=== PATIENT | female | born 1945 | race Caucasian/White ===

== ENCOUNTER 2021-03-10 04:02 | Outpatient (CLI) | payer OTHER, SELFPAY ==
[2021-03-10 08:10] LABS: Abs Immature Grans 0.03 10^3/uL (0.0-0.06); Absolute Basophil Count 0.03 10^3/uL (0.0-0.2); Absolute Eosinophil Count 0.24 10^3/uL (0.0-0.7); Absolute Lymphocyte Count 1.08 10^3/uL (1.2-3.4); Absolute Neutrophil Count 2.37 10^3/uL (1.2-6.7); Basophils % 0.7; Eosinophils % 5.6; HCT 41.7 % (36.0-46.0); HGB 13.4 g/dL (11.2-15.7); Immature Grans % 0.7; Lymphocytes % 25.4; MCH 31.8 pg (27.0-33.0); MCHC 32.1 % (32.0-36.0); Monocytes % 11.8; Neutrophils % 55.8; Nucleated RBC 0 %; Platelet Count 251 10^3/uL (130-400); RBC 4.21 10^6/uL (3.93-5.22); RDW 14.3 % (11.7-14.6); RDW-SD 51.7 fL; WBC 4.25 10^3/uL (4.4-10.8)
[2021-03-10 08:43] LABS: ALT 17 U/L (14-59); AST 14 U/L (15-37); Albumin 3.4 g/dL (3.4-5.0); Alkaline Phosphatase 62 U/L (46-116); Anion Gap 7.3 mmol/L (3-11); BUN 14 mg/dL (7-18); Bilirubin, Total 0.4 mg/dL (0.2-1.0); CO2 29.7 mmol/L (21.0-32.0); CREATININE 0.7 mg/dL (0.55-1.02); Calcium 9.2 mg/dL (8.5-10.1); Chloride 107 mmol/L (98-107); Glucose 70 mg/dL (74-106); Magnesium 2.2 mg/dL (1.8-2.4); Potassium 4.1 mmol/L (3.5-5.1); Sodium 144 mmol/L (136-145); Total Protein 6.3 g/dL (6.4-8.2)
== END 2021-03-10 04:03 | disposition home or self-care (01) ==
LOC: LBO 04:02
PROVIDERS: PCP Family Medicine; Visit Provider Internal Medicine Medical Oncology
DX: C34.12 Malignant neoplasm of upper lobe, left bronchus or lung (principal)
CPT/HCPCS: 36415; 80053; 83735; 85025

== ENCOUNTER 2021-03-16 03:24 | Outpatient (CLI) | payer OTHER, SELFPAY ==
[2021-03-16 08:07] LABS: Abs Immature Grans 0.01 10^3/uL (0.0-0.06); Absolute Basophil Count 0.03 10^3/uL (0.0-0.2); Absolute Lymphocyte Count 0.74 10^3/uL (1.2-3.4); Absolute Monocyte Count 0.28 10^3/uL (0.1-0.8); Eosinophils % 3.5; HCT 38.6 % (36.0-46.0); HGB 12.6 g/dL (11.2-15.7); Immature Grans % 0.3; Lymphocytes % 25.9; MCH 31.9 pg (27.0-33.0); MCHC 32.6 % (32.0-36.0); MCV 97.7 fL (80-95); MPV 9.6 fL (8.0-11.0); Monocytes % 9.8; Neutrophils % 59.5; Nucleated RBC 0 %; Platelet Count 193 10^3/uL (130-400); RBC 3.95 10^6/uL (3.93-5.22); RDW 14.2 % (11.7-14.6); RDW-SD 50.8 fL; WBC 2.86 10^3/uL (4.4-10.8)
[2021-03-16 08:20] LABS: ALT 17 U/L (14-59); AST 13 U/L (15-37); Albumin 3.2 g/dL (3.4-5.0); Alkaline Phosphatase 60 U/L (46-116); Anion Gap 6.6 mmol/L (3-11); BUN 16 mg/dL (7-18); Bilirubin, Total 0.6 mg/dL (0.2-1.0); CO2 26.4 mmol/L (21.0-32.0); CREATININE 0.7 mg/dL (0.55-1.02); Calcium 8.6 mg/dL (8.5-10.1); Chloride 108 mmol/L (98-107); Glucose 87 mg/dL (74-106); Magnesium 2.3 mg/dL (1.8-2.4); Potassium 4.2 mmol/L (3.5-5.1); Sodium 141 mmol/L (136-145); Total Protein 6.1 g/dL (6.4-8.2)
== END 2021-03-16 03:25 | disposition home or self-care (01) ==
LOC: LBO 03:24
PROVIDERS: PCP Family Medicine; Visit Provider Internal Medicine Medical Oncology
DX: C34.12 Malignant neoplasm of upper lobe, left bronchus or lung (principal)
CPT/HCPCS: 36415; 80053; 83735; 85025

== ENCOUNTER 2021-03-23 03:36 | Outpatient (CLI) | payer OTHER, SELFPAY ==
[2021-03-23 08:07] LABS: Abs Immature Grans 0.03 10^3/uL (0.0-0.06); Absolute Basophil Count 0.02 10^3/uL (0.0-0.2); Absolute Eosinophil Count 0.07 10^3/uL (0.0-0.7); Absolute Lymphocyte Count 0.59 10^3/uL (1.2-3.4); Absolute Monocyte Count 0.44 10^3/uL (0.1-0.8); Absolute Neutrophil Count 1.73 10^3/uL (1.2-6.7); Basophils % 0.7; Eosinophils % 2.4; HCT 39.1 % (36.0-46.0); HGB 12.9 g/dL (11.2-15.7); Lymphocytes % 20.5; MCH 32.7 pg (27.0-33.0); MCV 99.2 fL (80-95); MPV 9.4 fL (8.0-11.0); Monocytes % 15.3; Neutrophils % 60.1; Nucleated RBC 0 %; Platelet Count 209 10^3/uL (130-400); RBC 3.94 10^6/uL (3.93-5.22); RDW 14.3 % (11.7-14.6); RDW-SD 51.6 fL; WBC 2.88 10^3/uL (4.4-10.8)
[2021-03-23 08:22] LABS: ALT 17 U/L (14-59); AST 14 U/L (15-37); Albumin 3.4 g/dL (3.4-5.0); Alkaline Phosphatase 62 U/L (46-116); Anion Gap 4.4 mmol/L (3-11); BUN 17 mg/dL (7-18); Bilirubin, Total 0.3 mg/dL (0.2-1.0); CO2 28.6 mmol/L (21.0-32.0); CREATININE 0.6 mg/dL (0.55-1.02); Calcium 9.1 mg/dL (8.5-10.1); Chloride 108 mmol/L (98-107); Glucose 89 mg/dL (74-106); Magnesium 2.3 mg/dL (1.8-2.4); Potassium 5.5 mmol/L (3.5-5.1); Sodium 141 mmol/L (136-145); Total Protein 6.4 g/dL (6.4-8.2)
== END 2021-03-23 03:37 | disposition home or self-care (01) ==
LOC: LBO 03:36
PROVIDERS: PCP Family Medicine; Visit Provider Internal Medicine Medical Oncology
DX: C34.12 Malignant neoplasm of upper lobe, left bronchus or lung (principal)
CPT/HCPCS: 36415; 80053; 83735; 85025

== ENCOUNTER 2021-03-30 07:35 | Outpatient (CLI) | payer OTHER, SELFPAY ==
[2021-03-30 07:54] LABS: Abs Immature Grans 0.02 10^3/uL (0.0-0.06); Absolute Basophil Count 0.02 10^3/uL (0.0-0.2); Absolute Eosinophil Count 0.05 10^3/uL (0.0-0.7); Absolute Monocyte Count 0.42 10^3/uL (0.1-0.8); Absolute Neutrophil Count 1.69 10^3/uL (1.2-6.7); Basophils % 0.7; Eosinophils % 1.8; HCT 35.8 % (36.0-46.0); HGB 11.8 g/dL (11.2-15.7); Immature Grans % 0.7; Lymphocytes % 21.4; MCH 32.6 pg (27.0-33.0); MCV 98.9 fL (80-95); MPV 9.2 fL (8.0-11.0); Neutrophils % 60.4; Nucleated RBC 0 %; Platelet Count 157 10^3/uL (130-400); RBC 3.62 10^6/uL (3.93-5.22); RDW 14.4 % (11.7-14.6); RDW-SD 51.4 fL
[2021-03-30 08:08] LABS: ALT 18 U/L (14-59); AST 12 U/L (15-37); Albumin 3.2 g/dL (3.4-5.0); Alkaline Phosphatase 67 U/L (46-116); Anion Gap 6.4 mmol/L (3-11); BUN 14 mg/dL (7-18); Bilirubin, Total 0.4 mg/dL (0.2-1.0); CO2 28.6 mmol/L (21.0-32.0); CREATININE 0.7 mg/dL (0.55-1.02); Calcium 8.6 mg/dL (8.5-10.1); Chloride 107 mmol/L (98-107); Glucose 82 mg/dL (74-106); Potassium 3.7 mmol/L (3.5-5.1); Sodium 142 mmol/L (136-145); Total Protein 6.1 g/dL (6.4-8.2)
== END 2021-03-30 07:36 | disposition home or self-care (01) ==
PROVIDERS: PCP Family Medicine; Visit Provider Internal Medicine Medical Oncology
DX: C34.12 Malignant neoplasm of upper lobe, left bronchus or lung (principal)
CPT/HCPCS: 36415; 80053; 83735; 85025

== ENCOUNTER 2021-04-06 07:31 | Outpatient (CLI) | payer OTHER, SELFPAY ==
[2021-04-06 07:44] LABS: Abs Immature Grans 0.02 10^3/uL (0.0-0.06); Absolute Basophil Count 0.02 10^3/uL (0.0-0.2); Absolute Eosinophil Count 0.06 10^3/uL (0.0-0.7); Absolute Lymphocyte Count 0.46 10^3/uL (1.2-3.4); Absolute Neutrophil Count 1.75 10^3/uL (1.2-6.7); Basophils % 0.7; Eosinophils % 2.2; HCT 34.7 % (36.0-46.0); HGB 11.3 g/dL (11.2-15.7); Immature Grans % 0.7; MCH 32.4 pg (27.0-33.0); MCHC 32.6 % (32.0-36.0); MCV 99.4 fL (80-95); MPV 8.8 fL (8.0-11.0); Monocytes % 14.8; Neutrophils % 64.6; Nucleated RBC 0 %; Platelet Count 145 10^3/uL (130-400); RBC 3.49 10^6/uL (3.93-5.22); RDW 14.9 % (11.7-14.6); RDW-SD 53.2 fL; WBC 2.71 10^3/uL (4.4-10.8)
[2021-04-06 07:58] LABS: ALT 18 U/L (14-59); AST 12 U/L (15-37); Albumin 3.1 g/dL (3.4-5.0); Alkaline Phosphatase 62 U/L (46-116); Anion Gap 6.9 mmol/L (3-11); BUN 10 mg/dL (7-18); Bilirubin, Total 0.3 mg/dL (0.2-1.0); CO2 26.1 mmol/L (21.0-32.0); CREATININE 0.6 mg/dL (0.55-1.02); Calcium 8.4 mg/dL (8.5-10.1); Chloride 108 mmol/L (98-107); Glucose 82 mg/dL (74-106); Magnesium 2.1 mg/dL (1.8-2.4); Sodium 141 mmol/L (136-145)
== END 2021-04-06 07:32 | disposition home or self-care (01) ==
LOC: LBO 07:33
PROVIDERS: PCP Family Medicine; Visit Provider Internal Medicine Medical Oncology
DX: C34.12 Malignant neoplasm of upper lobe, left bronchus or lung (principal)
CPT/HCPCS: 36415; 80053; 83735; 85025

== ENCOUNTER 2021-05-04 13:30 | Outpatient (RCR) | payer OTHER, SELFPAY ==
[2021-04-13 08:35] LABS: Abs Immature Grans 0.02 10^3/uL (0.0-0.06); Absolute Basophil Count 0.01 10^3/uL (0.0-0.2); Absolute Eosinophil Count 0.05 10^3/uL (0.0-0.7); Absolute Lymphocyte Count 0.51 10^3/uL (1.2-3.4); Absolute Neutrophil Count 1.65 10^3/uL (1.2-6.7); Basophils % 0.4; HCT 34.8 % (36.0-46.0); HGB 11.8 g/dL (11.2-15.7); Immature Grans % 0.8; Lymphocytes % 20.1; MCH 32.8 pg (27.0-33.0); MCHC 33.9 % (32.0-36.0); MCV 96.7 fL (80-95); MPV 9.7 fL (8.0-11.0); Monocytes % 11.8; Neutrophils % 64.9; Nucleated RBC 0 %; Platelet Count 168 10^3/uL (130-400); RDW 15.1 % (11.7-14.6); RDW-SD 51.5 fL; WBC 2.54 10^3/uL (4.4-10.8)
[2021-04-13 08:53] LABS: ALT 20 U/L (14-59); AST 14 U/L (15-37); Albumin 3.4 g/dL (3.4-5.0); Alkaline Phosphatase 62 U/L (46-116); Anion Gap 6.7 mmol/L (3-11); BUN 9 mg/dL (7-18); Bilirubin, Total 0.5 mg/dL (0.2-1.0); CO2 26.3 mmol/L (21.0-32.0); CREATININE 0.7 mg/dL (0.55-1.02); Calcium 9.1 mg/dL (8.5-10.1); Chloride 107 mmol/L (98-107); Glucose 106 mg/dL (74-106); Magnesium 2.3 mg/dL (1.8-2.4); Potassium 4.6 mmol/L (3.5-5.1); Sodium 140 mmol/L (136-145); Total Protein 6.6 g/dL (6.4-8.2)
[2021-04-27 11:22] LABS: Absolute Basophil Count 0.01 10^3/uL (0.0-0.2); Absolute Eosinophil Count 0.07 10^3/uL (0.0-0.7); Absolute Monocyte Count 0.61 10^3/uL (0.1-0.8); Absolute Neutrophil Count 1.24 10^3/uL (1.2-6.7); Basophils % 0.4; Eosinophils % 2.9; HCT 36.9 % (36.0-46.0); Lymphocytes % 20.6; MCH 33.2 pg (27.0-33.0); MCHC 32.5 % (32.0-36.0); MCV 102.2 fL (80-95); MPV 9.5 fL (8.0-11.0); Monocytes % 25.1; Nucleated RBC 0 %; Platelet Count 251 10^3/uL (130-400); RBC 3.61 10^6/uL (3.93-5.22); RDW 16.5 % (11.7-14.6); RDW-SD 62.5 fL; WBC 2.43 10^3/uL (4.4-10.8)
[2021-04-27 11:34] LABS: ALT 16 U/L (14-59); AST 15 U/L (15-37); Albumin 3.3 g/dL (3.4-5.0); Alkaline Phosphatase 69 U/L (46-116); Anion Gap 8.9 mmol/L (3-11); BUN 13 mg/dL (7-18); Bilirubin, Total 0.3 mg/dL (0.2-1.0); CO2 28.1 mmol/L (21.0-32.0); CREATININE 0.7 mg/dL (0.55-1.02); Calcium 8.7 mg/dL (8.5-10.1); Chloride 108 mmol/L (98-107); Glucose 84 mg/dL (74-106); Magnesium 2.2 mg/dL (1.8-2.4); Potassium 3.8 mmol/L (3.5-5.1); Sodium 145 mmol/L (136-145); Total Protein 6.5 g/dL (6.4-8.2)
[2021-05-04] MEDS: Normal Saline Flush 10 ML SYR IVP (13:56)
[2021-05-04 14:17] LABS: Abs Immature Grans 0.06 10^3/uL (0.0-0.06); Absolute Basophil Count 0.03 10^3/uL (0.0-0.2); Absolute Eosinophil Count 0.17 10^3/uL (0.0-0.7); Absolute Lymphocyte Count 0.85 10^3/uL (1.2-3.4); Absolute Neutrophil Count 2.98 10^3/uL (1.2-6.7); Basophils % 0.6; Eosinophils % 3.5; HCT 39.5 % (36.0-46.0); HGB 12.7 g/dL (11.2-15.7); Immature Grans % 1.3; Lymphocytes % 17.7; MCH 33.1 pg (27.0-33.0); MCHC 32.2 % (32.0-36.0); MCV 102.9 fL (80-95); MPV 9.5 fL (8.0-11.0); Monocytes % 14.6; Neutrophils % 62.3; Nucleated RBC 0 %; Platelet Count 293 10^3/uL (130-400); RBC 3.84 10^6/uL (3.93-5.22); RDW 16.5 % (11.7-14.6); WBC 4.79 10^3/uL (4.4-10.8)
[2021-05-04 14:27] LABS: Magnesium 2.5 mg/dL (1.8-2.4)
[2021-05-04 14:31] LABS: ALT 24 U/L (14-59); AST 13 U/L (15-37); Albumin 3.6 g/dL (3.4-5.0); Alkaline Phosphatase 83 U/L (46-116); Anion Gap 11.3 mmol/L (3-11); BUN 13 mg/dL (7-18); Bilirubin, Total 0.3 mg/dL (0.2-1.0); CO2 25.7 mmol/L (21.0-32.0); CREATININE 0.7 mg/dL (0.55-1.02); Calcium 8.7 mg/dL (8.5-10.1); Chloride 105 mmol/L (98-107); Glucose 82 mg/dL (74-106); Potassium 3.9 mmol/L (3.5-5.1); Sodium 142 mmol/L (136-145)
== END 2021-05-05 23:59 | disposition home or self-care (01) ==
LOC: INF 13:30
PROVIDERS: PCP Family Medicine; Visit Provider Internal Medicine Medical Oncology
DX: C34.12 Malignant neoplasm of upper lobe, left bronchus or lung (principal)
CPT/HCPCS: 36415; 80053; 83735; 85025

== ENCOUNTER 2021-05-25 14:08 | Outpatient (CLI) | payer OTHER, SELFPAY ==
[2021-05-25 14:10] LABS: Abs Immature Grans 0.14 10^3/uL (0.0-0.06); Absolute Basophil Count 0.02 10^3/uL (0.0-0.2); Absolute Eosinophil Count 0.01 10^3/uL (0.0-0.7); Absolute Lymphocyte Count 0.34 10^3/uL (1.2-3.4); Absolute Monocyte Count 0.17 10^3/uL (0.1-0.8); Absolute Neutrophil Count 8.19 10^3/uL (1.2-6.7); Basophils % 0.2; Eosinophils % 0.1; HCT 41.7 % (36.0-46.0); HGB 13.1 g/dL (11.2-15.7); Immature Grans % 1.6; Lymphocytes % 3.8; MCH 32.6 pg (27.0-33.0); MCHC 31.4 % (32.0-36.0); MCV 103.7 fL (80-95); MPV 9.2 fL (8.0-11.0); Monocytes % 1.9; Neutrophils % 92.4; Nucleated RBC 0 %; Platelet Count 231 10^3/uL (130-400); RBC 4.02 10^6/uL (3.93-5.22); RDW 16.3 % (11.7-14.6); RDW-SD 62.7 fL; WBC 8.87 10^3/uL (4.4-10.8)
[2021-05-25 14:23] LABS: Magnesium 2.4 mg/dL (1.8-2.4)
[2021-05-25 14:25] LABS: ALT 22 U/L (14-59); AST 10 U/L (15-37); Albumin 3.4 g/dL (3.4-5.0); Alkaline Phosphatase 66 U/L (46-116); Anion Gap 4.8 mmol/L (3-11); BUN 21 mg/dL (7-18); Bilirubin, Total 0.4 mg/dL (0.2-1.0); CO2 31.2 mmol/L (21.0-32.0); CREATININE 0.7 mg/dL (0.55-1.02); Calcium 8.9 mg/dL (8.5-10.1); Chloride 106 mmol/L (98-107); Glucose 120 mg/dL (74-106); Sodium 142 mmol/L (136-145); Total Protein 6.4 g/dL (6.4-8.2)
== END 2021-05-25 14:09 | disposition home or self-care (01) ==
LOC: LBO 14:19
PROVIDERS: PCP Family Medicine; Visit Provider Internal Medicine Medical Oncology
DX: C34.12 Malignant neoplasm of upper lobe, left bronchus or lung (principal)
CPT/HCPCS: 36415; 80053; 83735; 85025

== ENCOUNTER 2021-06-22 02:19 | Outpatient (RCR) | payer OTHER, SELFPAY ==
[2021-06-22 10:23] LABS: Absolute Basophil Count 0.03 10^3/uL (0.0-0.2); Absolute Eosinophil Count 0.05 10^3/uL (0.0-0.7); Absolute Lymphocyte Count 0.64 10^3/uL (1.2-3.4); Absolute Monocyte Count 0.75 10^3/uL (0.1-0.8); Absolute Neutrophil Count 8.81 10^3/uL (1.2-6.7); Basophils % 0.3; Eosinophils % 0.5; HCT 44.5 % (36.0-46.0); HGB 14.1 g/dL (11.2-15.7); Immature Grans % 1.9; Lymphocytes % 6.1; MCH 32.9 pg (27.0-33.0); MCHC 31.7 % (32.0-36.0); MPV 9.5 fL (8.0-11.0); Monocytes % 7.2; Nucleated RBC 0 %; Platelet Count 218 10^3/uL (130-400); RBC 4.28 10^6/uL (3.93-5.22); RDW 15.1 % (11.7-14.6); RDW-SD 58.1 fL; WBC 10.48 10^3/uL (4.4-10.8)
[2021-06-22 10:41] LABS: ALT 20 U/L (14-59); AST 13 U/L (15-37); Albumin 3.4 g/dL (3.4-5.0); Alkaline Phosphatase 56 U/L (46-116); Anion Gap 6.9 mmol/L (3-11); BUN 15 mg/dL (7-18); Bilirubin, Total 0.4 mg/dL (0.2-1.0); CO2 30.1 mmol/L (21.0-32.0); CREATININE 0.8 mg/dL (0.55-1.02); Calcium 8.5 mg/dL (8.5-10.1); Chloride 105 mmol/L (98-107); Glucose 84 mg/dL (74-106); Magnesium 2.4 mg/dL (1.8-2.4); Potassium 3.9 mmol/L (3.5-5.1); Sodium 142 mmol/L (136-145); Total Protein 6.3 g/dL (6.4-8.2)
== END 2021-07-05 23:59 | disposition home or self-care (01) ==
LOC: INF 02:19
PROVIDERS: PCP Family Medicine; Visit Provider Internal Medicine Medical Oncology
DX: C34.12 Malignant neoplasm of upper lobe, left bronchus or lung (principal)
CPT/HCPCS: 36415; 80053; 83735; 85025

== ENCOUNTER 2021-08-31 03:36 | Outpatient (RCR) | payer MEDICARE, SELFPAY ==
[2021-08-31 10:07] LABS: Abs Immature Grans 0.08 10^3/uL (0.0-0.06); Absolute Basophil Count 0.02 10^3/uL (0.0-0.2); Absolute Eosinophil Count 0.05 10^3/uL (0.0-0.7); Absolute Lymphocyte Count 0.63 10^3/uL (1.2-3.4); Absolute Monocyte Count 0.58 10^3/uL (0.1-0.8); Absolute Neutrophil Count 3.76 10^3/uL (1.2-6.7); Basophils % 0.4; HCT 44.5 % (36.0-46.0); HGB 13.9 g/dL (11.2-15.7); Immature Grans % 1.6; Lymphocytes % 12.3; MCH 32.3 pg (27.0-33.0); MCHC 31.2 % (32.0-36.0); MCV 103.2 fL (80-95); MPV 9.5 fL (8.0-11.0); Monocytes % 11.3; Neutrophils % 73.4; Nucleated RBC 0 %; Platelet Count 202 10^3/uL (130-400); RBC 4.31 10^6/uL (3.93-5.22); RDW 14.9 % (11.7-14.6); RDW-SD 57.3 fL; WBC 5.12 10^3/uL (4.4-10.8)
[2021-08-31 10:40] LABS: ALT 21 U/L (14-59); AST 14 U/L (15-37); Albumin 3.3 g/dL (3.4-5.0); Alkaline Phosphatase 53 U/L (46-116); Anion Gap 3.8 mmol/L (3-11); BUN 16 mg/dL (7-18); Bilirubin, Total 0.4 mg/dL (0.2-1.0); CO2 32.2 mmol/L (21.0-32.0); CREATININE 0.8 mg/dL (0.55-1.02); Calcium 8.6 mg/dL (8.5-10.1); Chloride 104 mmol/L (98-107); FREE T4 0.75 ng/dL (0.76-1.46); Glucose 86 mg/dL (74-106); Potassium 3.8 mmol/L (3.5-5.1); Sodium 140 mmol/L (136-145); TSH 2.36 uIU/mL (0.36-3.74)
== END 2021-09-04 23:59 | disposition home or self-care (01) ==
LOC: INF 03:36
PROVIDERS: PCP Family Medicine; Visit Provider Internal Medicine Medical Oncology
DX: C34.12 Malignant neoplasm of upper lobe, left bronchus or lung (principal); Z79.899 Other long term (current) drug therapy
CPT/HCPCS: 36415; 80053; 84439; 84443; 85025

== ENCOUNTER 2021-11-30 02:30 | Outpatient (RCR) | payer MEDICARE, SELFPAY ==
[2021-11-30 12:24] LABS: Abs Immature Grans 0.03 10^3/uL (0.0-0.06); Absolute Basophil Count 0.03 10^3/uL (0.0-0.2); Absolute Eosinophil Count 0.08 10^3/uL (0.0-0.7); Absolute Lymphocyte Count 0.99 10^3/uL (1.2-3.4); Absolute Monocyte Count 0.56 10^3/uL (0.1-0.8); Absolute Neutrophil Count 3.47 10^3/uL (1.2-6.7); Basophils % 0.6; Eosinophils % 1.6; HCT 44.3 % (36.0-46.0); HGB 14.1 g/dL (11.2-15.7); Immature Grans % 0.6; Lymphocytes % 19.2; MCHC 31.8 % (32.0-36.0); MCV 100.7 fL (80-95); MPV 9.8 fL (8.0-11.0); Monocytes % 10.9; Neutrophils % 67.1; Nucleated RBC 0 %; Platelet Count 253 10^3/uL (130-400); RDW 14.4 % (11.7-14.6); RDW-SD 53.4 fL; WBC 5.16 10^3/uL (4.4-10.8)
[2021-11-30 12:52] LABS: ALT 20 U/L (14-59); AST 12 U/L (15-37); Albumin 3.6 g/dL (3.4-5.0); Alkaline Phosphatase 78 U/L (46-116); Anion Gap 4.8 mmol/L (3-11); BUN 12 mg/dL (7-18); Bilirubin, Total 0.5 mg/dL (0.2-1.0); CO2 29.2 mmol/L (21.0-32.0); CREATININE 0.8 mg/dL (0.55-1.02); Calcium 8.8 mg/dL (8.5-10.1); Chloride 106 mmol/L (98-107); FREE T4 0.75 ng/dL (0.76-1.46); Glucose 85 mg/dL (74-106); Potassium 4.3 mmol/L (3.5-5.1); Sodium 140 mmol/L (136-145); TSH 2.36 uIU/mL (0.36-3.74); Total Protein 6.6 g/dL (6.4-8.2)
== END 2021-12-03 23:59 | disposition home or self-care (01) ==
LOC: INF 02:30
PROVIDERS: PCP Family Medicine; Visit Provider Internal Medicine Medical Oncology
DX: C34.12 Malignant neoplasm of upper lobe, left bronchus or lung (principal); Z79.899 Other long term (current) drug therapy
CPT/HCPCS: 36415; 80053; 84439; 84443; 85025

== ENCOUNTER 2023-10-31 03:51 | Outpatient (RCR) | payer MEDICARE, SELFPAY ==
[2023-10-10 12:16] LABS: Abs Immature Grans 0.02 10^3/uL (0.0-0.06); Absolute Basophil Count 0.05 10^3/uL (0.0-0.2); Absolute Eosinophil Count 0.53 10^3/uL (0.0-0.7); Absolute Lymphocyte Count 0.88 10^3/uL (1.2-3.4); Absolute Monocyte Count 0.57 10^3/uL (0.1-0.8); Absolute Neutrophil Count 3.11 10^3/uL (1.2-6.7); Eosinophils % 10.3; HCT 39.6 % (36.0-46.0); HGB 12.6 g/dL (11.2-15.7); Immature Grans % 0.4; Lymphocytes % 17.1; MCH 30.8 pg (27.0-33.0); MCHC 31.8 % (32.0-36.0); MCV 97 fL (80-95); MPV 9.6 fL (8.0-11.0); Neutrophils % 60.2; Platelet Count 235 10^3/uL (130-400); RBC 4.09 10^6/uL (3.93-5.22); RDW 14.3 % (11.7-14.6); RDW-SD 51.3 fL; WBC 5.16 10^3/uL (4.4-10.8)
[2023-10-10 12:45] LABS: ALT 20 U/L (14-59); AST 13 U/L (15-37); Albumin 3.3 g/dL (3.4-5.0); Alkaline Phosphatase 74 U/L (46-116); Anion Gap 7.9 mmol/L (3-11); BUN 14 mg/dL (7-18); Bilirubin, Total 0.5 mg/dL (0.2-1.0); CO2 28.1 mmol/L (21.0-32.0); CREATININE 0.8 mg/dL (0.55-1.02); Calcium 8.9 mg/dL (8.5-10.1); Chloride 106 mmol/L (98-107); Estimated GFR 75.84 (mL/min/1.73m2); FREE T4 0.93 ng/dL (0.76-1.46); Glucose 82 mg/dL (74-106); Magnesium 2.3 mg/dL (1.8-2.4); Potassium 4.4 mmol/L (3.5-5.1); Sodium 142 mmol/L (136-145); TSH 1.45 uIU/mL (0.36-3.74); Total Protein 6.3 g/dL (6.4-8.2)
[2023-10-24] MEDS: Normal Saline Flush 10 ML SYR IVP (13:38)
[2023-10-24 13:53] LABS: Absolute Basophil Count 0.01 10^3/uL (0.0-0.2); Absolute Eosinophil Count 0.15 10^3/uL (0.0-0.7); Absolute Lymphocyte Count 0.79 10^3/uL (1.2-3.4); Absolute Monocyte Count 0.53 10^3/uL (0.1-0.8); Absolute Neutrophil Count 1.18 10^3/uL (1.2-6.7); Basophils % 0.4; Eosinophils % 5.6; HCT 34.9 % (36.0-46.0); HGB 11.3 g/dL (11.2-15.7); Lymphocytes % 29.7; MCH 30.5 pg (27.0-33.0); MCHC 32.4 % (32.0-36.0); MCV 94 fL (80-95); MPV 9.9 fL (8.0-11.0); Monocytes % 19.9; Neutrophils % 44.4; Platelet Count 161 10^3/uL (130-400); RDW 14.2 % (11.7-14.6); RDW-SD 47.8 fL; WBC 2.66 10^3/uL (4.4-10.8)
[2023-10-24 14:22] LABS: ALT 34 U/L (14-59); AST 21 U/L (15-37); Albumin 3.2 g/dL (3.4-5.0); Alkaline Phosphatase 69 U/L (46-116); BUN 11 mg/dL (7-18); Bilirubin, Total 0.3 mg/dL (0.2-1.0); CREATININE 0.7 mg/dL (0.55-1.02); Calcium 8.5 mg/dL (8.5-10.1); Chloride 109 mmol/L (98-107); Estimated GFR 89.02 (mL/min/1.73m2); FREE T4 0.86 ng/dL (0.76-1.46); Glucose 99 mg/dL (74-106); Magnesium 2.2 mg/dL (1.8-2.4); Potassium 3.7 mmol/L (3.5-5.1); Sodium 144 mmol/L (136-145); TSH 1.56 uIU/mL (0.36-3.74); Total Protein 6.2 g/dL (6.4-8.2)
[2023-10-31 12:55] LABS: Abs Immature Grans 0.01 10^3/uL (0.0-0.06); Absolute Basophil Count 0.02 10^3/uL (0.0-0.2); Absolute Eosinophil Count 0.14 10^3/uL (0.0-0.7); Absolute Lymphocyte Count 0.82 10^3/uL (1.2-3.4); Absolute Monocyte Count 0.65 10^3/uL (0.1-0.8); Absolute Neutrophil Count 1.56 10^3/uL (1.2-6.7); Basophils % 0.6; Eosinophils % 4.4; HCT 34.6 % (36.0-46.0); HGB 11.3 g/dL (11.2-15.7); Immature Grans % 0.3; Lymphocytes % 25.6; MCHC 32.7 % (32.0-36.0); MCV 95 fL (80-95); MPV 9.7 fL (8.0-11.0); Monocytes % 20.3; Neutrophils % 48.8; Platelet Count 332 10^3/uL (130-400); RBC 3.64 10^6/uL (3.93-5.22); RDW 14.8 % (11.7-14.6); RDW-SD 50.7 fL
[2023-10-31 13:15] LABS: ALT 32 U/L (14-59); AST 20 U/L (15-37); Albumin 2.9 g/dL (3.4-5.0); Alkaline Phosphatase 64 U/L (46-116); Anion Gap 8.4 mmol/L (3-11); BUN 10 mg/dL (7-18); Bilirubin, Total 0.4 mg/dL (0.2-1.0); CO2 27.6 mmol/L (21.0-32.0); CREATININE 0.7 mg/dL (0.55-1.02); Calcium 8.3 mg/dL (8.5-10.1); Chloride 109 mmol/L (98-107); Estimated GFR 89.02 (mL/min/1.73m2); FREE T4 0.89 ng/dL (0.76-1.46); Glucose 95 mg/dL (74-106); Magnesium 2.1 mg/dL (1.8-2.4); Potassium 3.6 mmol/L (3.5-5.1); Sodium 145 mmol/L (136-145); TSH 1.67 uIU/mL (0.36-3.74); Total Protein 5.9 g/dL (6.4-8.2)
[2023-10-31] MEDS: Normal Saline Flush 10 ML SYR IVP (14:26)
== END 2023-11-03 23:59 | disposition home or self-care (01) ==
LOC: INF 03:51
PROVIDERS: PCP Family Medicine; Visit Provider Internal Medicine Medical Oncology
DX: C34.12 Malignant neoplasm of upper lobe, left bronchus or lung (principal); Z79.899 Other long term (current) drug therapy; Z45.2 Encounter for adjustment and management of vascular access device
CPT/HCPCS: 36415; 36591; 80053; 83735; 84439; 84443; 85025

== ENCOUNTER 2023-11-21 05:13 | Outpatient (RCR) | payer MEDICARE, SELFPAY ==
[2023-11-21] MEDS: Normal Saline Flush 10 ML SYR IVP (09:39)
[2023-11-21 09:55] LABS: Abs Immature Grans 0.01 10^3/uL (0.0-0.06); Absolute Basophil Count 0.02 10^3/uL (0.0-0.2); Absolute Eosinophil Count 0.08 10^3/uL (0.0-0.7); Absolute Lymphocyte Count 0.83 10^3/uL (1.2-3.4); Absolute Monocyte Count 0.62 10^3/uL (0.1-0.8); Absolute Neutrophil Count 0.98 10^3/uL (1.2-6.7); Basophils % 0.8; Eosinophils % 3.1; HCT 33.9 % (36.0-46.0); HGB 10.9 g/dL (11.2-15.7); Immature Grans % 0.4; Lymphocytes % 32.7; MCH 31.3 pg (27.0-33.0); MCHC 32.2 % (32.0-36.0); MCV 97 fL (80-95); MPV 9.3 fL (8.0-11.0); Monocytes % 24.4; Neutrophils % 38.6; Platelet Count 370 10^3/uL (130-400); RBC 3.48 10^6/uL (3.93-5.22); RDW 16.9 % (11.7-14.6); RDW-SD 58.7 fL; WBC 2.54 10^3/uL (4.4-10.8)
[2023-11-21 10:15] LABS: Anisocytosis 1+; Diff Comment Diff Reviewed
[2023-11-21 10:19] LABS: ALT 41 U/L (14-59); AST 25 U/L (15-37); Albumin 3.1 g/dL (3.4-5.0); Alkaline Phosphatase 67 U/L (46-116); Anion Gap 8.9 mmol/L (3-11); BUN 8 mg/dL (7-18); Bilirubin, Total 0.4 mg/dL (0.2-1.0); CO2 28.1 mmol/L (21.0-32.0); CREATININE 0.8 mg/dL (0.55-1.02); Calcium 8.2 mg/dL (8.5-10.1); Chloride 109 mmol/L (98-107); Estimated GFR 75.84 (mL/min/1.73m2); FREE T4 0.92 ng/dL (0.76-1.46); Glucose 98 mg/dL (74-106); Magnesium 2.2 mg/dL (1.8-2.4); Potassium 3.2 mmol/L (3.5-5.1); Sodium 146 mmol/L (136-145)
== END 2023-12-04 23:59 | disposition home or self-care (01) ==
LOC: INF 05:13
PROVIDERS: PCP Family Medicine; Visit Provider Internal Medicine Medical Oncology
DX: C34.12 Malignant neoplasm of upper lobe, left bronchus or lung (principal); Z79.899 Other long term (current) drug therapy
CPT/HCPCS: 36591; 80053; 83735; 84439; 84443; 85025

== ENCOUNTER 2023-12-19 05:47 | Outpatient (RCR) | payer MEDICARE, SELFPAY ==
[2023-12-19] MEDS: Normal Saline Flush 10 ML SYR IVP (10:15)
[2023-12-19 10:31] LABS: Abs Immature Grans 0.02 10^3/uL (0.0-0.06); Absolute Basophil Count 0.03 10^3/uL (0.0-0.2); Absolute Monocyte Count 0.55 10^3/uL (0.1-0.8); Basophils % 0.5; Eosinophils % 3.1; HCT 37.3 % (36.0-46.0); HGB 11.8 g/dL (11.2-15.7); Immature Grans % 0.3; Lymphocytes % 14.1; MCH 31.3 pg (27.0-33.0); MCHC 31.6 % (32.0-36.0); MCV 99 fL (80-95); MPV 9.4 fL (8.0-11.0); Monocytes % 8.6; Neutrophils % 73.4; Platelet Count 365 10^3/uL (130-400); RBC 3.77 10^6/uL (3.93-5.22); RDW 15.9 % (11.7-14.6); RDW-SD 58.1 fL
[2023-12-19 11:13] LABS: ALT 24 U/L (14-59); AST 18 U/L (15-37); Albumin 2.9 g/dL (3.4-5.0); Alkaline Phosphatase 74 U/L (46-116); Anion Gap 10.5 mmol/L (3-11); BUN 14 mg/dL (7-18); Bilirubin, Total 0.4 mg/dL (0.2-1.0); CO2 26.5 mmol/L (21.0-32.0); CREATININE 0.7 mg/dL (0.55-1.02); Calcium 8.6 mg/dL (8.5-10.1); Chloride 107 mmol/L (98-107); Estimated GFR 89.02 (mL/min/1.73m2); FREE T4 0.91 ng/dL (0.76-1.46); Glucose 120 mg/dL (74-106); Magnesium 2.1 mg/dL (1.8-2.4); Sodium 144 mmol/L (136-145); TSH 2.14 uIU/Ml (0.36-3.74); Total Protein 6.3 g/dL (6.4-8.2)
== END 2024-01-03 23:59 | disposition home or self-care (01) ==
LOC: INF 05:47
PROVIDERS: PCP Family Medicine; Visit Provider Internal Medicine Medical Oncology
DX: C34.12 Malignant neoplasm of upper lobe, left bronchus or lung (principal); Z79.899 Other long term (current) drug therapy; Z45.2 Encounter for adjustment and management of vascular access device
CPT/HCPCS: 36591; 80053; 83735; 84439; 84443; 85025

== ENCOUNTER 2024-01-09 04:57 | Outpatient (RCR) | payer MEDICARE, SELFPAY ==
[2024-01-09] MEDS: Normal Saline Flush 10 ML SYR IVP (08:40)
[2024-01-09 09:22] LABS: Abs Immature Grans 0.04 10^3/uL (0.0-0.06); Absolute Basophil Count 0.03 10^3/uL (0.0-0.2); Absolute Eosinophil Count 0.06 10^3/uL (0.0-0.7); Absolute Lymphocyte Count 0.99 10^3/uL (1.2-3.4); Absolute Monocyte Count 0.86 10^3/uL (0.1-0.8); Absolute Neutrophil Count 4.32 10^3/uL (1.2-6.7); Basophils % 0.5 %; HCT 33.8 % (36.0-46.0); HGB 10.5 g/dL (11.2-15.7); Immature Grans % 0.6 %; Lymphocytes % 15.7 %; MCH 30.7 pg (27.0-33.0); MCHC 31.1 % (32.0-36.0); MCV 99 fL (80-95); MPV 9.5 fL (8.0-11.0); Monocytes % 13.7 %; Neutrophils % 68.5 %; Platelet Count 374 10^3/uL (130-400); RBC 3.42 10^6/uL (3.93-5.22); RDW 16.2 % (11.7-14.6); RDW-SD 58.5 fL
[2024-01-09 09:51] LABS: ALT 14 U/L (14-59); AST 13 U/L (15-37); Albumin 2.9 g/dL (3.4-5.0); Alkaline Phosphatase 76 U/L (46-116); Anion Gap 7.9 mmol/L (3-11); BUN 14 mg/dL (7-18); Bilirubin, Total 0.4 mg/dL (0.2-1.0); CO2 28.1 mmol/L (21.0-32.0); CREATININE 0.7 mg/dL (0.55-1.02); Calcium 8.7 mg/dL (8.5-10.1); Chloride 107 mmol/L (98-107); Estimated GFR 89.02 (mL/min/1.73m2); FREE T4 0.94 ng/dL (0.76-1.46); Glucose 87 mg/dL (74-106); Sodium 143 mmol/L (136-145); TSH 2.39 uIU/Ml (0.36-3.74); Total Protein 6.2 g/dL (6.4-8.2)
== END 2024-02-03 23:59 | disposition home or self-care (01) ==
LOC: INF 04:57
PROVIDERS: PCP Family Medicine; Visit Provider Internal Medicine Medical Oncology
DX: C34.12 Malignant neoplasm of upper lobe, left bronchus or lung (principal); Z79.899 Other long term (current) drug therapy; Z45.2 Encounter for adjustment and management of vascular access device
CPT/HCPCS: 36591; 80053; 83735; 84439; 84443; 85025

== ENCOUNTER 2024-02-27 02:46 | Outpatient (RCR) | payer MEDICARE, SELFPAY ==
[2024-02-06] MEDS: Normal Saline Flush 10 ML SYR IVP (10:12)
[2024-02-06 10:25] LABS: Abs Immature Grans 0.01 10^3/uL (0.0-0.06); Absolute Basophil Count 0.03 10^3/uL (0.0-0.2); Absolute Lymphocyte Count 0.81 10^3/uL (1.2-3.4); Absolute Monocyte Count 0.81 10^3/uL (0.1-0.8); Absolute Neutrophil Count 3.68 10^3/uL (1.2-6.7); Basophils % 0.5 %; Eosinophils % 3.6 %; HCT 31.6 % (36.0-46.0); HGB 9.9 g/dL (11.2-15.7); Immature Grans % 0.2 %; Lymphocytes % 14.6 %; MCH 30.6 pg (27.0-33.0); MCHC 31.3 % (32.0-36.0); MCV 98 fL (80-95); MPV 9.5 fL (8.0-11.0); Monocytes % 14.6 %; Neutrophils % 66.5 %; Platelet Count 230 10^3/uL (130-400); RBC 3.24 10^6/uL (3.93-5.22); RDW 16.1 % (11.7-14.6); RDW-SD 57.2 fL; WBC 5.54 10^3/uL (4.4-10.8)
[2024-02-06 10:49] LABS: ALT 18 U/L (14-59); AST 15 U/L (15-37); Albumin 3.2 g/dL (3.4-5.0); Alkaline Phosphatase 70 U/L (46-116); Anion Gap 8.6 mmol/L (3-11); BUN 11 mg/dL (7-18); Bilirubin, Total 0.4 mg/dL (0.2-1.0); CO2 30.4 mmol/L (21.0-32.0); CREATININE 0.9 mg/dL (0.55-1.02); Calcium 8.6 mg/dL (8.5-10.1); Chloride 106 mmol/L (98-107); Estimated GFR 65.84 (mL/min/1.73m2); Glucose 109 mg/dL (74-106); Potassium 3.1 mmol/L (3.5-5.1); Sodium 145 mmol/L (136-145); Total Protein 6.4 g/dL (6.4-8.2)
== END 2024-03-04 23:59 | disposition home or self-care (01) ==
LOC: INF 02:46
PROVIDERS: PCP Family Medicine; Visit Provider Internal Medicine Medical Oncology
DX: Z79.899 Other long term (current) drug therapy (principal); C34.12 Malignant neoplasm of upper lobe, left bronchus or lung; Z45.2 Encounter for adjustment and management of vascular access device
CPT/HCPCS: 36591; 80053; 83735; 84439; 84443; 85025

== ENCOUNTER 2024-03-28 01:51 | Outpatient (RCR) | payer MEDICARE, SELFPAY ==
[2024-03-05] MEDS: Normal Saline Flush 10 ML SYR IVP (10:23)
[2024-03-05 10:55] LABS: Abs Immature Grans 0.04 10^3/uL (0.0-0.06); Absolute Basophil Count 0.03 10^3/uL (0.0-0.2); Absolute Eosinophil Count 0.26 10^3/uL (0.0-0.7); Absolute Lymphocyte Count 0.54 10^3/uL (1.2-3.4); Absolute Monocyte Count 0.67 10^3/uL (0.1-0.8); Absolute Neutrophil Count 4.59 10^3/uL (1.2-6.7); Basophils % 0.5 %; Eosinophils % 4.2 %; HCT 27.8 % (36.0-46.0); HGB 8.5 g/dL (11.2-15.7); Immature Grans % 0.7 %; Lymphocytes % 8.8 %; MCH 30.5 pg (27.0-33.0); MCHC 30.6 % (32.0-36.0); MCV 100 fL (80-95); MPV 9.7 fL (8.0-11.0); Monocytes % 10.9 %; Neutrophils % 74.9 %; Platelet Count 226 10^3/uL (130-400); RBC 2.79 10^6/uL (3.93-5.22); RDW 16.8 % (11.7-14.6); RDW-SD 62.2 fL; WBC 6.13 10^3/uL (4.4-10.8)
[2024-03-05 11:28] LABS: ALT 25 U/L (14-59); AST 17 U/L (15-37); Albumin 2.6 g/dL (3.4-5.0); Alkaline Phosphatase 49 U/L (46-116); Anion Gap 7.4 mmol/L (3-11); BUN 14 mg/dL (7-18); Bilirubin, Total 0.56 mg/dL (0.2-1.0); CO2 30.6 mmol/L (21.0-32.0); Calcium 8.3 mg/dL (8.5-10.1); Chloride 106 mmol/L (98-107); Estimated GFR 58.02 (mL/min/1.73m2); Glucose 100 mg/dL (74-106); Magnesium 1.8 mg/dL (1.8-2.4); Potassium 3.4 mmol/L (3.5-5.1); Sodium 144 mmol/L (136-145); TSH 4.95 uIU/Ml (0.36-3.74); Total Protein 5.8 g/dL (6.4-8.2)
[2024-03-28] MEDS: Normal Saline Flush 10 ML SYR IVP (10:00)
[2024-03-28 10:41] LABS: Abs Immature Grans 0.04 10^3/uL (0.0-0.06); Absolute Basophil Count 0.05 10^3/uL (0.0-0.2); Absolute Lymphocyte Count 0.72 10^3/uL (1.2-3.4); Absolute Monocyte Count 1.25 10^3/uL (0.1-0.8); Absolute Neutrophil Count 3.99 10^3/uL (1.2-6.7); Basophils % 0.8 %; Eosinophils % 4.7 %; HCT 33.3 % (36.0-46.0); HGB 10.5 g/dL (11.2-15.7); Immature Grans % 0.6 %; Lymphocytes % 11.3 %; MCH 30.9 pg (27.0-33.0); MCHC 31.5 % (32.0-36.0); MCV 98 fL (80-95); MPV 9.5 fL (8.0-11.0); Monocytes % 19.7 %; Neutrophils % 62.9 %; Platelet Count 416 10^3/uL (130-400); RDW 17.8 % (11.7-14.6); RDW-SD 61.1 fL; WBC 6.35 10^3/uL (4.4-10.8)
[2024-03-28 10:44] LABS: Reticulocyte 1.6 % (0.5-2.4)
[2024-03-28 11:07] LABS: ALT 30 U/L (14-59); AST 22 U/L (15-37); Albumin 2.8 g/dL (3.4-5.0); Alkaline Phosphatase 70 U/L (46-116); Anion Gap 6.9 mmol/L (3-11); BUN 15 mg/dL (7-18); Bilirubin, Total 0.36 mg/dL (0.2-1.0); CO2 28.1 mmol/L (21.0-32.0); CREATININE 1.2 mg/dL (0.55-1.02); Calcium 8.4 mg/dL (8.5-10.1); Chloride 107 mmol/L (98-107); Estimated GFR 46.62 (mL/min/1.73m2); FREE T4 0.97 ng/dL (0.76-1.46); Glucose 94 mg/dL (74-106); Potassium 4.3 mmol/L (3.5-5.1); Sodium 142 mmol/L (136-145); TSH 3.75 uIU/Ml (0.36-3.74); Total Protein 6.3 g/dL (6.4-8.2)
[2024-03-28 11:09] LABS: Iron 11 ug/dL (50-170); Total Iron Binding Capacity 82 ug/dL (250-450); Transferrin Sat 13 % (15-50)
[2024-03-28 11:23] LABS: Ferritin 480 ng/mL (8-252); Folate > 20.0 ng/mL (8.6-20.0); Vitamin B12 1340 pg/mL (193-986)
== END 2024-04-04 23:59 | disposition home or self-care (01) ==
LOC: INF 01:51
PROVIDERS: Nurse Practitioner Family; PCP Family Medicine; Visit Provider Internal Medicine Medical Oncology
DX: C34.12 Malignant neoplasm of upper lobe, left bronchus or lung (principal); Z79.899 Other long term (current) drug therapy; D63.0 Anemia in neoplastic disease; Z45.2 Encounter for adjustment and management of vascular access device
CPT/HCPCS: 36591; 80053; 82607; 82728; 82746; 83540; 83550; 83735; 84439; 84443; 85025; 85045

== ENCOUNTER 2024-04-16 03:06 | Outpatient (RCR) | payer MEDICARE, SELFPAY ==
[2024-04-16] MEDS: Normal Saline Flush 10 ML SYR IVP (10:59)
[2024-04-16 11:07] LABS: Abs Immature Grans 0.04 10^3/uL (0.0-0.06); Absolute Basophil Count 0.03 10^3/uL (0.0-0.2); Absolute Eosinophil Count 0.21 10^3/uL (0.0-0.7); Absolute Lymphocyte Count 1.08 10^3/uL (1.2-3.4); Absolute Monocyte Count 1.25 10^3/uL (0.1-0.8); Absolute Neutrophil Count 5.18 10^3/uL (1.2-6.7); Basophils % 0.4 %; Eosinophils % 2.7 %; HGB 9.1 g/dL (11.2-15.7); Immature Grans % 0.5 %; Lymphocytes % 13.9 %; MCH 31.7 pg (27.0-33.0); MCHC 32.5 % (32.0-36.0); MCV 98 fL (80-95); MPV 9.9 fL (8.0-11.0); Neutrophils % 66.5 %; Platelet Count 374 10^3/uL (130-400); RBC 2.87 10^6/uL (3.93-5.22); RDW 19.4 % (11.7-14.6); RDW-SD 62.7 fL; WBC 7.79 10^3/uL (4.4-10.8)
[2024-04-16 11:37] LABS: ALT 43 U/L (14-59); AST 37 U/L (15-37); Albumin 3.1 g/dL (3.4-5.0); Alkaline Phosphatase 69 U/L (46-116); Anion Gap 7.5 mmol/L (3-11); BUN 16 mg/dL (7-18); Bilirubin, Total 0.28 mg/dL (0.2-1.0); CO2 29.5 mmol/L (21.0-32.0); CREATININE 1.2 mg/dL (0.55-1.02); Calcium 9.2 mg/dL (8.5-10.1); Chloride 104 mmol/L (98-107); Estimated GFR 46.62 (mL/min/1.73m2); FREE T4 0.98 ng/dL (0.76-1.46); Glucose 91 mg/dL (74-106); Magnesium 2.2 mg/dL (1.8-2.4); Potassium 4.9 mmol/L (3.5-5.1); Sodium 141 mmol/L (136-145); TSH 5.27 uIU/Ml (0.36-3.74); Total Protein 6.8 g/dL (6.4-8.2)
== END 2024-05-05 23:59 | disposition home or self-care (01) ==
LOC: INF 03:06
PROVIDERS: PCP Family Medicine; Visit Provider Internal Medicine Medical Oncology
DX: C34.12 Malignant neoplasm of upper lobe, left bronchus or lung (principal); Z79.899 Other long term (current) drug therapy; Z45.2 Encounter for adjustment and management of vascular access device
CPT/HCPCS: 36591; 80053; 83735; 84439; 84443; 85025

== ENCOUNTER 2024-05-30 02:10 | Outpatient (RCR) | payer MEDICARE, SELFPAY ==
[2024-05-09] MEDS: Normal Saline Flush 10 ML SYR IVP (09:20)
[2024-05-09 09:36] LABS: Abs Immature Grans 0.03 10^3/uL (0.0-0.06); Absolute Basophil Count 0.03 10^3/uL (0.0-0.2); Absolute Eosinophil Count 0.23 10^3/uL (0.0-0.7); Absolute Lymphocyte Count 0.89 10^3/uL (1.2-3.4); Absolute Monocyte Count 1.23 10^3/uL (0.1-0.8); Absolute Neutrophil Count 3.87 10^3/uL (1.2-6.7); Basophils % 0.5 %; Eosinophils % 3.7 %; HCT 30.8 % (36.0-46.0); HGB 9.7 g/dL (11.2-15.7); Immature Grans % 0.5 %; Lymphocytes % 14.2 %; MCH 32.7 pg (27.0-33.0); MCHC 31.5 % (32.0-36.0); MCV 104 fL (80-95); MPV 9.8 fL (8.0-11.0); Monocytes % 19.6 %; Neutrophils % 61.5 %; Platelet Count 418 10^3/uL (130-400); RBC 2.97 10^6/uL (3.93-5.22); RDW 20.8 % (11.7-14.6); RDW-SD 76.5 fL; WBC 6.28 10^3/uL (4.4-10.8)
[2024-05-09 10:02] LABS: Diff Comment RBC Morph Reviewed
[2024-05-09 10:03] LABS: ALT 29 U/L (14-59); AST 24 U/L (15-37); Albumin 3.2 g/dL (3.4-5.0); Alkaline Phosphatase 74 U/L (46-116); Anion Gap 8.2 mmol/L (3-11); Anisocytosis 2+; BUN 19 mg/dL (7-18); Bilirubin, Total 0.36 mg/dL (0.2-1.0); CO2 26.8 mmol/L (21.0-32.0); CREATININE 1.4 mg/dL (0.55-1.02); Calcium 9.6 mg/dL (8.5-10.1); Chloride 105 mmol/L (98-107); Estimated GFR 38.51 (mL/min/1.73m2); FREE T4 0.92 ng/dL (0.76-1.46); Glucose 97 mg/dL (74-106); Magnesium 2.4 mg/dL (1.8-2.4); Polychromasia Present; Potassium 4.8 mmol/L (3.5-5.1); Sodium 140 mmol/L (136-145); TSH 10.49 uIU/Ml (0.36-3.74)
[2024-05-30 13:40] LABS: Abs Immature Grans 0.04 10^3/uL (0.0-0.06); Absolute Basophil Count 0.06 10^3/uL (0.0-0.2); Absolute Eosinophil Count 0.23 10^3/uL (0.0-0.7); Absolute Lymphocyte Count 0.93 10^3/uL (1.2-3.4); Absolute Monocyte Count 1.01 10^3/uL (0.1-0.8); Absolute Neutrophil Count 5.34 10^3/uL (1.2-6.7); Basophils % 0.8 %; HCT 30.3 % (36.0-46.0); HGB 9.6 g/dL (11.2-15.7); Immature Grans % 0.5 %; Lymphocytes % 12.2 %; MCH 33.6 pg (27.0-33.0); MCHC 31.7 % (32.0-36.0); MCV 106 fL (80-95); MPV 10.1 fL (8.0-11.0); Monocytes % 13.3 %; Neutrophils % 70.2 %; Platelet Count 260 10^3/uL (130-400); RBC 2.86 10^6/uL (3.93-5.22); RDW 18.7 % (11.7-14.6); RDW-SD 73.5 fL; WBC 7.61 10^3/uL (4.4-10.8)
[2024-05-30] MEDS: Normal Saline Flush 10 ML SYR IVP (13:41)
[2024-05-30 14:07] LABS: ALT 25 U/L (14-59); AST 39 U/L (15-37); Albumin 3.3 g/dL (3.4-5.0); Alkaline Phosphatase 70 U/L (46-116); Anion Gap 8.5 mmol/L (3-11); BUN 20 mg/dL (7-18); Bilirubin, Total 0.47 mg/dL (0.2-1.0); CO2 25.5 mmol/L (21.0-32.0); CREATININE 1.3 mg/dL (0.55-1.02); Chloride 103 mmol/L (98-107); Estimated GFR 42.09 (mL/min/1.73m2); FREE T4 0.92 ng/dL (0.76-1.46); Glucose 102 mg/dL (74-106); Potassium 4.1 mmol/L (3.5-5.1); Sodium 137 mmol/L (136-145); TSH 2.38 uIU/Ml (0.36-3.74); Total Protein 6.8 g/dL (6.4-8.2)
[2024-05-30 14:12] LABS: Macrocytosis 1+
== END 2024-06-04 23:59 | disposition home or self-care (01) ==
LOC: INF 02:10
PROVIDERS: PCP Family Medicine; Visit Provider Internal Medicine Medical Oncology
DX: C34.12 Malignant neoplasm of upper lobe, left bronchus or lung (principal); Z79.899 Other long term (current) drug therapy
CPT/HCPCS: 36591; 80053; 83735; 84439; 84443; 85025

== ENCOUNTER 2024-06-18 02:19 | Outpatient (RCR) | payer MEDICARE, SELFPAY ==
[2024-06-18] MEDS: Normal Saline Flush 10 ML SYR IVP (09:17)
[2024-06-18 10:03] LABS: Abs Immature Grans 0.04 10^3/uL (0.0-0.06); Absolute Basophil Count 0.01 10^3/uL (0.0-0.2); Absolute Eosinophil Count 0.17 10^3/uL (0.0-0.7); Absolute Lymphocyte Count 0.87 10^3/uL (1.2-3.4); Absolute Monocyte Count 1.26 10^3/uL (0.1-0.8); Absolute Neutrophil Count 4.39 10^3/uL (1.2-6.7); Basophils % 0.1 %; Eosinophils % 2.5 %; HCT 25.8 % (36.0-46.0); HGB 8.4 g/dL (11.2-15.7); Immature Grans % 0.6 %; Lymphocytes % 12.9 %; MCHC 32.6 % (32.0-36.0); MCV 108 fL (80-95); MPV 10.3 fL (8.0-11.0); Monocytes % 18.7 %; Neutrophils % 65.2 %; Platelet Count 367 10^3/uL (130-400); RDW 17.8 % (11.7-14.6); RDW-SD 66.7 fL; WBC 6.74 10^3/uL (4.4-10.8)
[2024-06-18 10:21] LABS: Diff Comment Diff Reviewed
[2024-06-18 10:22] LABS: Hypochromasia 2+; Macrocytosis 2+; Polychromasia Present
[2024-06-18 10:35] LABS: ALT 31 U/L (14-59); AST 23 U/L (15-37); Albumin 3.1 g/dL (3.4-5.0); Alkaline Phosphatase 68 U/L (46-116); Anion Gap 9.9 mmol/L (3-11); BUN 19 mg/dL (7-18); Bilirubin, Total 0.33 mg/dL (0.2-1.0); CO2 25.1 mmol/L (21.0-32.0); CREATININE 1.4 mg/dL (0.55-1.02); Chloride 109 mmol/L (98-107); Estimated GFR 38.51 (mL/min/1.73m2); FREE T4 0.94 ng/dL (0.76-1.46); Glucose 85 mg/dL (74-106); Magnesium 2.5 mg/dL (1.8-2.4); Potassium 4.3 mmol/L (3.5-5.1); Sodium 144 mmol/L (136-145); TSH 3.89 uIU/mL (0.36-3.74); Total Protein 6.7 g/dL (6.4-8.2)
== END 2024-07-05 23:59 | disposition home or self-care (01) ==
LOC: INF 02:19
PROVIDERS: PCP Family Medicine; Visit Provider Internal Medicine Medical Oncology
DX: C34.12 Malignant neoplasm of upper lobe, left bronchus or lung (principal); Z79.899 Other long term (current) drug therapy; Z45.2 Encounter for adjustment and management of vascular access device
CPT/HCPCS: 36591; 80053; 83735; 84439; 84443; 85025

== ENCOUNTER 2024-07-09 02:27 | Outpatient (RCR) | payer MEDICARE, SELFPAY ==
[2024-07-09] MEDS: Normal Saline Flush 10 ML SYR IVP (09:49)
[2024-07-09 09:58] LABS: Abs Immature Grans 0.06 10^3/uL (0.0-0.06); Absolute Basophil Count 0.03 10^3/uL (0.0-0.2); Absolute Eosinophil Count 0.29 10^3/uL (0.0-0.7); Absolute Lymphocyte Count 1.02 10^3/uL (1.2-3.4); Absolute Monocyte Count 1.14 10^3/uL (0.1-0.8); Absolute Neutrophil Count 4.34 10^3/uL (1.2-6.7); Basophils % 0.4 %; Eosinophils % 4.2 %; HGB 9.5 g/dL (11.2-15.7); Immature Grans % 0.9 %; Lymphocytes % 14.8 %; MCH 34.3 pg (27.0-33.0); MCHC 32.8 % (32.0-36.0); MCV 105 fL (80-95); MPV 10.1 fL (8.0-11.0); Monocytes % 16.6 %; Neutrophils % 63.1 %; Platelet Count 436 10^3/uL (130-400); RBC 2.77 10^6/uL (3.93-5.22); RDW 18.7 % (11.7-14.6); RDW-SD 65.9 fL; WBC 6.88 10^3/uL (4.4-10.8)
[2024-07-09 10:23] LABS: ALT 34 U/L (14-59); AST 26 U/L (15-37); Albumin 3.3 g/dL (3.4-5.0); Alkaline Phosphatase 73 U/L (46-116); Anion Gap 6.2 mmol/L (3-11); BUN 24 mg/dL (7-18); Bilirubin, Total 0.33 mg/dL (0.2-1.0); CO2 26.8 mmol/L (21.0-32.0); CREATININE 1.7 mg/dL (0.55-1.02); Calcium 9.3 mg/dL (8.5-10.1); Chloride 107 mmol/L (98-107); FREE T4 0.88 ng/dL (0.76-1.46); Glucose 104 mg/dL (74-106); Magnesium 2.3 mg/dL (1.8-2.4); Potassium 4.5 mmol/L (3.5-5.1); Sodium 140 mmol/L (136-145); TSH 4.09 uIU/mL (0.36-3.74); Total Protein 7.1 g/dL (6.4-8.2)
== END 2024-08-04 23:59 | disposition home or self-care (01) ==
LOC: INF 02:27
PROVIDERS: PCP Family Medicine; Visit Provider Internal Medicine Medical Oncology
DX: C34.12 Malignant neoplasm of upper lobe, left bronchus or lung (principal); Z79.899 Other long term (current) drug therapy; Z45.2 Encounter for adjustment and management of vascular access device
CPT/HCPCS: 36591; 80053; 83735; 84439; 84443; 85025

== ENCOUNTER 2024-08-27 10:30 | Outpatient (RCR) | payer MEDICARE, SELFPAY ==
[2024-08-07] MEDS: Normal Saline Flush 10 ML SYR IVP (09:56)
[2024-08-07 10:05] LABS: Abs Immature Grans 0.04 10^3/uL (0.0-0.06); Absolute Basophil Count 0.06 10^3/uL (0.0-0.2); Absolute Eosinophil Count 0.32 10^3/uL (0.0-0.7); Absolute Lymphocyte Count 1.12 10^3/uL (1.2-3.4); Absolute Monocyte Count 0.84 10^3/uL (0.1-0.8); Absolute Neutrophil Count 4.62 10^3/uL (1.2-6.7); Basophils % 0.9 %; Eosinophils % 4.6 %; HCT 30.6 % (36.0-46.0); HGB 9.7 g/dL (11.2-15.7); Immature Grans % 0.6 %; MCH 34.3 pg (27.0-33.0); MCHC 31.7 % (32.0-36.0); MCV 108 fL (80-95); MPV 10.3 fL (8.0-11.0); Neutrophils % 65.9 %; Platelet Count 242 10^3/uL (130-400); RBC 2.83 10^6/uL (3.93-5.22); RDW 17.2 % (11.7-14.6); RDW-SD 69.5 fL
[2024-08-07 10:32] LABS: ALT 25 U/L (14-59); AST 23 U/L (15-37); Albumin 3.5 g/dL (3.4-5.0); Alkaline Phosphatase 64 U/L (46-116); Anion Gap 10.2 mmol/L (3-11); BUN 23 mg/dL (7-18); Bilirubin, Total 0.38 mg/dL (0.2-1.0); CO2 26.8 mmol/L (21.0-32.0); CREATININE 1.7 mg/dL (0.55-1.02); Chloride 107 mmol/L (98-107); FREE T4 0.92 ng/dL (0.76-1.46); Glucose 124 mg/dL (74-106); Magnesium 2.2 mg/dL (1.8-2.4); Potassium 4.5 mmol/L (3.5-5.1); Sodium 144 mmol/L (136-145); TSH 3.55 uIU/mL (0.36-3.74)
[2024-08-27] MEDS: Normal Saline Flush 10 ML SYR IVP (11:44)
[2024-08-27 11:51] LABS: Abs Immature Grans 0.02 10^3/uL (0.0-0.06); Absolute Basophil Count 0.03 10^3/uL (0.0-0.2); Absolute Eosinophil Count 0.21 10^3/uL (0.0-0.7); Absolute Lymphocyte Count 1.19 10^3/uL (1.2-3.4); Absolute Neutrophil Count 4.39 10^3/uL (1.2-6.7); Basophils % 0.5 %; Eosinophils % 3.2 %; HCT 31.6 % (36.0-46.0); HGB 10.4 g/dL (11.2-15.7); Immature Grans % 0.3 %; Lymphocytes % 17.9 %; MCHC 32.9 % (32.0-36.0); MCV 103 fL (80-95); MPV 10.2 fL (8.0-11.0); Neutrophils % 66.1 %; Platelet Count 231 10^3/uL (130-400); RBC 3.06 10^6/uL (3.93-5.22); RDW-SD 57.3 fL; WBC 6.64 10^3/uL (4.4-10.8)
[2024-08-27 12:25] LABS: ALT 20 U/L (14-59); AST 18 U/L (15-37); Albumin 3.5 g/dL (3.4-5.0); Alkaline Phosphatase 69 U/L (46-116); BUN 21 mg/dL (7-18); Bilirubin, Total 0.36 mg/dL (0.2-1.0); CREATININE 1.8 mg/dL (0.55-1.02); Chloride 107 mmol/L (98-107); Estimated GFR 28.48 (mL/min/1.73m2); FREE T4 0.85 ng/dL (0.76-1.46); Glucose 109 mg/dL (74-106); Magnesium 2.2 mg/dL (1.8-2.4); Potassium 4.2 mmol/L (3.5-5.1); Sodium 143 mmol/L (136-145); TSH 2.57 uIU/mL (0.36-3.74); Total Protein 6.9 g/dL (6.4-8.2)
== END 2024-09-04 23:59 | disposition home or self-care (01) ==
LOC: INF 10:30
PROVIDERS: PCP Family Medicine; Visit Provider Internal Medicine Medical Oncology
DX: C34.12 Malignant neoplasm of upper lobe, left bronchus or lung (principal); Z79.899 Other long term (current) drug therapy; Z45.2 Encounter for adjustment and management of vascular access device
CPT/HCPCS: 36591; 80053; 83735; 84439; 84443; 85025

== ENCOUNTER 2024-09-18 13:03 | Outpatient (CLI) | payer MEDICARE, SELFPAY ==
--- NOTE | 2024-09-18 13:00 | RT.EKG_ITS ---
APPROVED REPORT Exam: Resting ECG Reason for Exam: SHORTNESS OF BREATH Patient Location: O HR:79 bpm ECG Measurements Heart Rate 79 AXIS LA 186 P 15 QRSd 99 QRS 8 QT 389 T 88 QTc 447 Conclusion Sinus rhythm...normal P axis, V-rate 50- 99 Borderline low voltage, extremity leads...all extremity leads <0.6mV
== END 2024-09-18 13:04 | disposition home or self-care (01) ==
PROVIDERS: PCP Family Medicine; Visit Provider Nurse Practitioner Family
DX: R06.02 Shortness of breath (principal)
CPT/HCPCS: 93005; 93010

== ENCOUNTER 2024-09-27 02:52 | Outpatient (CLI) | payer MEDICARE, SELFPAY ==
--- NOTE | 2024-09-27 | DI.CT_ITS ---
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 TECHNIQUE: Multi planar reconstructions were performed. CONTRAST MATERIAL: Omnipaque 350; 75 cc COMPARISON: There are no prior lung imaging studies in our PACS for comparison FINDINGS: CHEST: Distal tip of the right supra clavi in Port-A-Cath is at the cavoatrial junction. LUNGS: There are few small calcified granulomas in the right lung but no significant right lung findi ngs. On the left side there is some decreased left hemithoracic volume which is probably related to prior surgery. There is significant infiltrate in the left hilar-parahilar region with a few air bronchograms. Some of this infiltrate extends out to the pleural surface. The left mainstem bronchus is patent. There is a pleural based 4 millimeter nodule in the left upper lobe noted which is located posteriorl y (series 2/image 10). There are no pleural effusions on either side. MEDIASTINUM: There is no anterior mediastinal adenopathy nor adenopathy in the right hilum. The infi ltrate on the left side extends to the left hilar region making it difficult to assess for small left -sided lymph nodes. There is no subcarinal adenopathy. Visualized thyroid unremarkable. CARDIAC: Heart size is upper normal. There is a pericardial effusion which is thickest inferiorly wh ere it measures 2 cm thick.Caliber of the thoracic aorta is within normal limits. No evidence of dis section. VISUALIZED UPPER ABDOMEN:Right adrenal gland unremarkable. Small nodule noted in the left adrenal gl and measuring 1 cm. Difficult to determine if this is incidental adenoma versus small metastatic les ion. There are multiple well-defined hypodensities in liver which are probably benign cysts ranging up to 4 cm size. However, due the lower most aspect of the right hepatic lobe is not completely incl uded in the field of view and contains some heterogeneous density which requires further investigatio n. OSSEOUS: No significant osseous lesions.No fractures.. IMPRESSION: 1. Left hilar-parahilar infiltrate which most probably corresponds to malignancy discussed on the req uisition. Unfortunately no prior lung imaging studies in our PACS for comparison. Also other small left lung nodule as described above. No significant right lung findings. No pleural effusions. 2. Significant size pericardial effusion noted with maximum thickness inferiorly (2 cm). 3. 1 cm left adrenal nodule which is either incidental adenoma but cannot rule out early metastatic l esion. There also cysts in the liver but the lower most image also includes part of another lesion w hich may not be a cyst. Further liver imaging recommended. RADIATION DOSE DELIVERED: 118.74mGy.cm Total DLP DATA REPOSITORY: All CT scans at this facility are submitted to the National Radiology Data Registry (NRDR) Dose Index Registry (DIR) with the [employer] ([employer]). RADIATION OPTIMIZATION: All CT scans at this facility use at least one of these dose optimization te chniques: automated exposure control; mA and/or kV adjustment per patient size (includes targeted exa ms where dose is matched to clinical indication); or iterative reconstruction.
--- NOTE | 2024-09-27 | DI.US_ITS ---
APPROVED REPORT EXAM: Comprehensive 2D, Doppler, and color-flow Echocardiogram Patient Location: Out-Patient [employer] Manager: Emma Sloan RDCS (AE) Indications: SOB, Chronic atrial fibrillation, Lung CA Other Information Study Quality: Adequate Conclusion Normal left ventricular wall thickness and chamber size. Ejection fraction is 45 to 50%. There are no segmental wall motion abnormalities Normal right ventricular size and function Both atria are normal in size Trileaflet aortic valve with trace regurgitation Mild mitral annular calcification. Moderate mitral regurgitation Estimated right ventricular systolic pressure is 38 mmHg Moderate circumferential pericardial effusion, no evidence of tamponade Wall motion Left Ventricle Left ventricle is mildly dilated. Left ventricular mildly decreased. GLS is 12.6% There is normal le ft ventricular wall thickness. There is global hypokinesis of the left ventricle. There is no ventric ular septal defect visualized. LVEF is 45-50%. Right Ventricle The right ventricle is normal size. The right ventricular systolic function is normal. Atria The left atrium size is normal. The right atrium size is normal. The interatrial septum is intact wit h no evidence for an atrial septal defect. Aortic Valve The aortic valve is normal in structure. Aortic valve is trileaflet. There is no aortic valvular sten osis. Trace aortic regurgitation. Mitral Valve Mild mitral annular calcification. No evidence of mitral valve stenosis. Moderate mitral regurgitati on. Tricuspid Valve The tricuspid valve is normal in structure. There is no tricuspid valve stenosis. Mild tricuspid regu rgitation. The RVSP is 37.6 mmHg. Pulmonic Valve The pulmonary valve is normal in structure. There is no pulmonic valvular stenosis. There is no pulmo mohini valvular regurgitation. Great Vessels The aortic root is normal in size. The ascending aorta is normal in size. Aortic arch is normal in ca liber. IVC is normal in size and collapses >50% with inspiration. Pericardium Moderate circumferential pericardial effusion. 2D Dimensions IVSD d PLAX 0.90 cm F: 0.6-1.0 Ao Root d 2.81 cm F: 2.7 - 3.3 LVPW d PLAX 0.90 cm F: 0.6 - 1.0 Ao Asc Diam d 3.18 cm F: 2.3 - 3.1 LVID d PLAX 5.30 cm F: 3.8 - 5.2 LVDs 4.14 cm F: 2.2 - 3.5 LV EF Teichholz 43.5 % FS 21.67 % LV EDV (Teich) 134.7 mL LV ESV (Teich) 76.1 mL M-Mode TAPSE 1.51 cm (M/F) >1.7 Auto EF LV EDV A4C 108.8 mL LV EDV A2C 96.0 mL LV EDV BP 103.7 mL LV ESV A4C 59.6 mL LV ESV A2C 53.7 mL LV ESV BP 57.8 mL LVEF(%) A4C 45.2 % LVEF(%) A2C 44.1 % LVEF(%) BP 44.2 % LV SV A4C 49.2 ml LV SV A2C 42.4 ml LV SV BP 45.9 ml LV CO A4C 3.8 L/min LV CO A2C 3.2 L/min LV CO BP 3.5 L/min HR A4C 77.09 BPM HR A2C 74.54 BPM LV EDV Index (BP) LV Strain Long Pk Overal Avg (s) 12.62 LA Volume LA Length A4C 5.5 cm LA Length A2C 4.6 cm LA Area A4C s 16.70 cm2 LA Area A2C s 15.10 cm2 LA Vol A4C A-L 42.97 mL LA Vol A2C A-L 41.85 mL LA Vol Biplane A-L 46.3 mL LA Vol/BSA A4C A-L LA Vol/BSA A2C A-L LA Vol/BSA BP A-L 28.4 mL/m2 LA Vol A4C MOD 40.7 mL LA Vol A2C MOD 39.1 mL LA Vol BP MOD 43.3 mL RA Volume RA Area A4C 10.3 cm2 RA ESV A4C (A-L) 21.0mL RA Vol/BSA A4C A-L RA Length A4C 4.3 cm RA ESV A4C (MOD) 20.1mL LV Diastology MV E' lateral 0.051 (>0.1 m/s) MV E Vmax 0.76 (0.4-1.3 m/s) MV E/E' LAT 14.96 (<14) MV A Vmax 0.95 (0.4-1.3 m/s) E/A Ratio 0.8 Aortic Valve AoV Vmax 1.23 m/s LVOT Vmax 0.81 m/s AoV Peak Grad 6.0 mmHg LVOT Peak Grad 2.6 mmHg AoV Area (Vmax) 1.92 cm2 LVOT VTI 0.157 m AoV VTI 0.263 m LVOT Mean Grad 1.3 mmHg AoV Mean Harmeet. 0.79 m/s LVOT SV 45.37 mL AoV Mean Grad 2.9 mmHg LVOT Diam s 1.90 cm AoV Area (VTI) 1.73 cm2 AV Regurg Peak Gr. 6.00 mmHg Velocity Ratio 0.66 Mitral Valve MV DT 149 (160-240 msec) MR Vmax 5.42 m/s MV Vmax TIPS 1.01 m/s MR VTI 2.012 m MV Mean Grad 1.8 (<2mmHg) MR Peak Grad 117.7 mmHg MV VTI 0.243 m MR Mean Grad 86.8 mmHg Pulmonary Valve PV Vmax 0.85 (0.5-1.5 m/s) RVOT Vmax 0.64 m/s PV Peak Grad 2.9 mmHg RVOT Peak Gr. 1.6 mmHg PV Mean Harmeet 0.61 m/s RVOT VTI 0.149 m PV Mean Grad 1.7 mmHg RVOT Mean Gr. 0.9 mmHg Tricuspid Valve RA Pressure 3.00 mmHg TR Vmax 2.94 m/s TV S' 0.12 m/s TR Peak Grad 34.5 mmHg RVSP (TR) 37.6 mmHg
[2024-09-27] MEDS: Omnipaque 350 MG/ML 500 ML BTL-Imaging package 70 ML IJ (10:39)
[2024-09-27] MEDS: Normal Saline - Diluent 50 ML VIAL IJ (10:46)
== END 2024-09-27 03:12 ==
LOC: DI 02:52
PROVIDERS: PCP Family Medicine; Visit Provider Internal Medicine Cardiovascular Disease
DX: I48.20 Chronic atrial fibrillation, unspecified (principal); I35.1 Nonrheumatic aortic (valve) insufficiency; I34.0 Nonrheumatic mitral (valve) insufficiency
CPT/HCPCS: 93306; 71260

== ENCOUNTER 2024-10-02 02:49 | Outpatient (RCR) | payer MEDICARE, SELFPAY ==
[2024-09-17] MEDS: Normal Saline Flush 10 ML SYR IVP (10:37)
[2024-09-17 10:59] LABS: Abs Immature Grans 0.02 10^3/uL (0.0-0.06); Absolute Basophil Count 0.02 10^3/uL (0.0-0.2); Absolute Eosinophil Count 0.17 10^3/uL (0.0-0.7); Absolute Lymphocyte Count 0.91 10^3/uL (1.2-3.4); Absolute Monocyte Count 0.66 10^3/uL (0.1-0.8); Absolute Neutrophil Count 3.12 10^3/uL (1.2-6.7); Basophils % 0.4 %; Eosinophils % 3.5 %; HCT 31.1 % (36.0-46.0); HGB 10.2 g/dL (11.2-15.7); Immature Grans % 0.4 %; Lymphocytes % 18.6 %; MCH 33.7 pg (27.0-33.0); MCHC 32.8 % (32.0-36.0); MCV 103 fL (80-95); MPV 10.2 fL (8.0-11.0); Monocytes % 13.5 %; Neutrophils % 63.6 %; Platelet Count 228 10^3/uL (130-400); RBC 3.03 10^6/uL (3.93-5.22); RDW 14.3 % (11.7-14.6); RDW-SD 53.8 fL
[2024-09-17 11:14] LABS: ALT 19 U/L (14-59); AST 14 U/L (15-37); Albumin 3.1 g/dL (3.4-5.0); Alkaline Phosphatase 60 U/L (46-116); Anion Gap 6.1 mmol/L (3-11); BUN 22 mg/dL (7-18); Bilirubin, Total 0.31 mg/dL (0.2-1.0); CO2 28.9 mmol/L (21.0-32.0); CREATININE 1.6 mg/dL (0.55-1.02); Calcium 8.7 mg/dL (8.5-10.1); Chloride 106 mmol/L (98-107); Estimated GFR 32.81 (mL/min/1.73m2); FREE T4 0.75 ng/dL (0.76-1.46); Glucose 124 mg/dL (74-106); Potassium 4.4 mmol/L (3.5-5.1); Sodium 141 mmol/L (136-145); TSH 3.17 uIU/mL (0.36-3.74); Total Protein 6.4 g/dL (6.4-8.2)
[2024-09-27 09:15] LABS: CREATININE 1.4 mg/dL (0.55-1.02); Estimated GFR 38.51 (mL/min/1.73m2)
[2024-10-02] MEDS: Normal Saline Flush 10 ML SYR IVP (10:10)
[2024-10-02 10:21] LABS: Abs Immature Grans 0.02 10^3/uL (0.0-0.06); Absolute Basophil Count 0.04 10^3/uL (0.0-0.2); Absolute Eosinophil Count 0.18 10^3/uL (0.0-0.7); Absolute Lymphocyte Count 0.96 10^3/uL (1.2-3.4); Absolute Monocyte Count 0.79 10^3/uL (0.1-0.8); Absolute Neutrophil Count 3.32 10^3/uL (1.2-6.7); Basophils % 0.8 %; Eosinophils % 3.4 %; HGB 10.2 g/dL (11.2-15.7); Immature Grans % 0.4 %; Lymphocytes % 18.1 %; MCH 33.3 pg (27.0-33.0); MCHC 31.9 % (32.0-36.0); MCV 105 fL (80-95); MPV 10.3 fL (8.0-11.0); Monocytes % 14.9 %; Neutrophils % 62.4 %; Platelet Count 231 10^3/uL (130-400); RBC 3.06 10^6/uL (3.93-5.22); RDW-SD 53.4 fL; WBC 5.31 10^3/uL (4.4-10.8)
[2024-10-02 10:46] LABS: ALT 20 U/L (14-59); AST 14 U/L (15-37); Albumin 3.4 g/dL (3.4-5.0); Alkaline Phosphatase 54 U/L (46-116); Anion Gap 7.9 mmol/L (3-11); BUN 22 mg/dL (7-18); Bilirubin, Total 0.33 mg/dL (0.2-1.0); CO2 26.1 mmol/L (21.0-32.0); CREATININE 1.6 mg/dL (0.55-1.02); Calcium 9.4 mg/dL (8.5-10.1); Chloride 106 mmol/L (98-107); Estimated GFR 32.81 (mL/min/1.73m2); FREE T4 0.77 ng/dL (0.76-1.46); Glucose 92 mg/dL (74-106); Magnesium 2.1 mg/dL (1.8-2.4); Potassium 4.4 mmol/L (3.5-5.1); Sodium 140 mmol/L (136-145); TSH 5.04 uIU/mL (0.36-3.74); Total Protein 6.8 g/dL (6.4-8.2)
== END 2024-10-05 23:59 | disposition home or self-care (01) ==
LOC: INF 02:49
PROVIDERS: Nurse Practitioner Family; PCP Family Medicine; Visit Provider Internal Medicine Medical Oncology
DX: C34.12 Malignant neoplasm of upper lobe, left bronchus or lung (principal); Z79.899 Other long term (current) drug therapy
CPT/HCPCS: 36591; 80053; 82565; 83735; 84439; 84443; 85025

== ENCOUNTER 2024-10-23 04:11 | Outpatient (RCR) | payer MEDICARE, SELFPAY ==
[2024-10-23] MEDS: Normal Saline Flush 10 ML SYR IVP (12:42)
[2024-10-23 12:55] LABS: Abs Immature Grans 0.03 10^3/uL (0.0-0.06); Absolute Basophil Count 0.04 10^3/uL (0.0-0.2); Absolute Eosinophil Count 0.19 10^3/uL (0.0-0.7); Absolute Lymphocyte Count 1.05 10^3/uL (1.2-3.4); Absolute Monocyte Count 0.74 10^3/uL (0.1-0.8); Absolute Neutrophil Count 3.71 10^3/uL (1.2-6.7); Basophils % 0.7 %; Eosinophils % 3.3 %; HCT 33.1 % (36.0-46.0); HGB 10.7 g/dL (11.2-15.7); Immature Grans % 0.5 %; Lymphocytes % 18.2 %; MCH 33.1 pg (27.0-33.0); MCHC 32.3 % (32.0-36.0); MCV 103 fL (80-95); MPV 10.2 fL (8.0-11.0); Monocytes % 12.8 %; Neutrophils % 64.5 %; Platelet Count 210 10^3/uL (130-400); RBC 3.23 10^6/uL (3.93-5.22); RDW 13.7 % (11.7-14.6); RDW-SD 52.4 fL; WBC 5.76 10^3/uL (4.4-10.8)
[2024-10-23 13:28] LABS: ALT 23 U/L (14-59); AST 16 U/L (15-37); Albumin 3.4 g/dL (3.4-5.0); Alkaline Phosphatase 56 U/L (46-116); Anion Gap 6.6 mmol/L (3-11); BUN 30 mg/dL (7-18); Bilirubin, Total 0.33 mg/dL (0.2-1.0); CO2 27.4 mmol/L (21.0-32.0); CREATININE 1.5 mg/dL (0.55-1.02); Calcium 9.4 mg/dL (8.5-10.1); Chloride 108 mmol/L (98-107); Estimated GFR 35.45 (mL/min/1.73m2); FREE T4 0.86 ng/dL (0.76-1.46); Glucose 95 mg/dL (74-106); Potassium 4.6 mmol/L (3.5-5.1); Sodium 142 mmol/L (136-145); TSH 2.62 uIU/mL (0.36-3.74); Total Protein 6.7 g/dL (6.4-8.2)
== END 2024-11-02 23:59 | disposition home or self-care (01) ==
LOC: INF 04:11
PROVIDERS: Nurse Practitioner Family; PCP Family Medicine; Visit Provider Internal Medicine Medical Oncology
DX: Z79.899 Other long term (current) drug therapy (principal); C34.12 Malignant neoplasm of upper lobe, left bronchus or lung
CPT/HCPCS: 36591; 80053; 83735; 84439; 84443; 85025

== ENCOUNTER 2024-12-03 01:30 | Outpatient (RCR) | payer MEDICARE, OTHER, SELFPAY ==
[2024-11-12] MEDS: Normal Saline Flush 10 ML SYR IVP (08:57)
[2024-11-12 09:24] LABS: Abs Immature Grans 0.02 10^3/uL (0.0-0.06); Absolute Basophil Count 0.04 10^3/uL (0.0-0.2); Absolute Eosinophil Count 0.18 10^3/uL (0.0-0.7); Absolute Lymphocyte Count 1.18 10^3/uL (1.2-3.4); Absolute Monocyte Count 0.75 10^3/uL (0.1-0.8); Absolute Neutrophil Count 3.54 10^3/uL (1.2-6.7); Basophils % 0.7 %; Eosinophils % 3.2 %; HCT 32.8 % (36.0-46.0); HGB 10.4 g/dL (11.2-15.7); Immature Grans % 0.4 %; Lymphocytes % 20.7 %; MCH 31.9 pg (27.0-33.0); MCHC 31.7 % (32.0-36.0); MCV 101 fL (80-95); MPV 10.3 fL (8.0-11.0); Monocytes % 13.1 %; Neutrophils % 61.9 %; Platelet Count 225 10^3/uL (130-400); RBC 3.26 10^6/uL (3.93-5.22); RDW 13.6 % (11.7-14.6); RDW-SD 50.5 fL; WBC 5.71 10^3/uL (4.4-10.8)
[2024-11-12 09:39] LABS: Magnesium 2.2 mg/dL (1.8-2.4)
[2024-11-12 09:51] LABS: ALT 23 U/L (14-59); AST 15 U/L (15-37); Albumin 3.5 g/dL (3.4-5.0); Alkaline Phosphatase 56 U/L (46-116); Anion Gap 6.9 mmol/L (3-11); BUN 22 mg/dL (7-18); Bilirubin, Total 0.3 mg/dL (0.2-1.0); CO2 29.1 mmol/L (21.0-32.0); CREATININE 1.3 mg/dL (0.55-1.02); Calcium 9.1 mg/dL (8.5-10.1); Chloride 106 mmol/L (98-107); Estimated GFR 42.09 (mL/min/1.73m2); Glucose 95 mg/dL (74-106); NT-proBNP 1449 pg/mL (<300); Potassium 4.5 mmol/L (3.5-5.1); Sodium 142 mmol/L (136-145); TSH 3.25 uIU/mL (0.36-3.74); Total Protein 6.8 g/dL (6.4-8.2)
[2024-12-03] MEDS: Normal Saline Flush 10 ML SYR IVP (12:12)
[2024-12-03 12:52] LABS: Abs Immature Grans 0.03 10^3/uL (0.0-0.06); Absolute Basophil Count 0.04 10^3/uL (0.0-0.2); Absolute Eosinophil Count 0.22 10^3/uL (0.0-0.7); Absolute Monocyte Count 0.98 10^3/uL (0.1-0.8); Absolute Neutrophil Count 4.24 10^3/uL (1.2-6.7); Basophils % 0.6 %; Eosinophils % 3.3 %; HCT 32.1 % (36.0-46.0); HGB 10.1 g/dL (11.2-15.7); Immature Grans % 0.4 %; Lymphocytes % 17.9 %; MCH 31.8 pg (27.0-33.0); MCHC 31.5 % (32.0-36.0); MCV 101 fL (80-95); MPV 10.2 fL (8.0-11.0); Monocytes % 14.6 %; Neutrophils % 63.2 %; Platelet Count 225 10^3/uL (130-400); RBC 3.18 10^6/uL (3.93-5.22); RDW 14.5 % (11.7-14.6); RDW-SD 53.6 fL; WBC 6.71 10^3/uL (4.4-10.8)
[2024-12-03 13:16] LABS: ALT 23 U/L (14-59); AST 16 U/L (15-37); Albumin 3.5 g/dL (3.4-5.0); Alkaline Phosphatase 58 U/L (46-116); Anion Gap 9.7 mmol/L (3-11); BUN 20 mg/dL (7-18); Bilirubin, Total 0.3 mg/dL (0.2-1.0); CO2 26.3 mmol/L (21.0-32.0); CREATININE 1.4 mg/dL (0.55-1.02); Calcium 9.2 mg/dL (8.5-10.1); Chloride 105 mmol/L (98-107); Estimated GFR 38.51 (mL/min/1.73m2); FREE T4 0.88 ng/dL (0.76-1.46); Glucose 91 mg/dL (74-106); Magnesium 2.3 mg/dL (1.8-2.4); Potassium 4.7 mmol/L (3.5-5.1); Sodium 141 mmol/L (136-145); TSH 4.86 uIU/mL (0.36-3.74); Total Protein 6.8 g/dL (6.4-8.2)
== END 2024-12-03 23:59 | disposition home or self-care (01) ==
LOC: INF 01:30
PROVIDERS: Nurse Practitioner Family; PCP Family Medicine; Visit Provider Internal Medicine Medical Oncology
DX: C34.12 Malignant neoplasm of upper lobe, left bronchus or lung (principal); Z79.899 Other long term (current) drug therapy; D63.0 Anemia in neoplastic disease; R53.83 Other fatigue; I95.1 Orthostatic hypotension; I50.32 Chronic diastolic (congestive) heart failure
CPT/HCPCS: 36591; 80053; 82533; 83735; 83880; 84439; 84443; 85025

== ENCOUNTER 2024-12-24 02:22 | Outpatient (RCR) | payer MEDICARE, OTHER, SELFPAY ==
[2024-12-24 12:11] LABS: Abs Immature Grans 0.02 10^3/uL (0.0-0.06); Absolute Basophil Count 0.03 10^3/uL (0.0-0.2); Absolute Lymphocyte Count 0.97 10^3/uL (1.2-3.4); Absolute Monocyte Count 0.81 10^3/uL (0.1-0.8); Absolute Neutrophil Count 3.97 10^3/uL (1.2-6.7); Basophils % 0.5 %; Eosinophils % 3.3 %; HCT 29.7 % (36.0-46.0); Immature Grans % 0.3 %; Lymphocytes % 16.2 %; MCH 30.8 pg (27.0-33.0); MCHC 30.3 % (32.0-36.0); MCV 102 fL (80-95); MPV 10.1 fL (8.0-11.0); Monocytes % 13.5 %; Neutrophils % 66.2 %; Platelet Count 244 10^3/uL (130-400); RBC 2.92 10^6/uL (3.93-5.22); RDW 14.6 % (11.7-14.6); RDW-SD 54.7 fL
[2024-12-24] MEDS: Normal Saline Flush 10 ML SYR IVP (12:26)
[2024-12-24 12:45] LABS: ALT 17 U/L (14-59); AST 14 U/L (15-37); Albumin 3.2 g/dL (3.4-5.0); Alkaline Phosphatase 60 U/L (46-116); Anion Gap 5.7 mmol/L (3-11); BUN 22 mg/dL (7-18); Bilirubin, Total 0.4 mg/dL (0.2-1.0); CO2 27.3 mmol/L (21.0-32.0); CREATININE 1.4 mg/dL (0.55-1.02); Calcium 9.2 mg/dL (8.5-10.1); Chloride 106 mmol/L (98-107); Estimated GFR 38.51 (mL/min/1.73m2); FREE T4 0.81 ng/dL (0.76-1.46); Glucose 77 mg/dL (74-106); Magnesium 2.3 mg/dL (1.8-2.4); Potassium 4.8 mmol/L (3.5-5.1); Sodium 139 mmol/L (136-145); TSH 2.16 uIU/mL (0.36-3.74); Total Protein 6.6 g/dL (6.4-8.2)
== END 2025-01-02 23:59 | disposition home or self-care (01) ==
LOC: INF 02:22
PROVIDERS: Nurse Practitioner Family; PCP Family Medicine; Visit Provider Internal Medicine Medical Oncology
DX: Z79.899 Other long term (current) drug therapy (principal); C34.12 Malignant neoplasm of upper lobe, left bronchus or lung; Z45.2 Encounter for adjustment and management of vascular access device
CPT/HCPCS: 36591; 80053; 83735; 84439; 84443; 85025

== ENCOUNTER 2025-01-22 01:59 | Outpatient (RCR) | payer MEDICARE, OTHER, SELFPAY ==
[2025-01-22] MEDS: Normal Saline Flush 10 ML SYR IVP (12:18)
[2025-01-22 12:27] LABS: Abs Immature Grans 0.02 10^3/uL (0.0-0.06); Absolute Basophil Count 0.03 10^3/uL (0.0-0.2); Absolute Eosinophil Count 0.15 10^3/uL (0.0-0.7); Absolute Lymphocyte Count 0.95 10^3/uL (1.2-3.4); Absolute Monocyte Count 0.63 10^3/uL (0.1-0.8); Basophils % 0.5 %; Eosinophils % 2.6 %; HCT 29.6 % (36.0-46.0); Immature Grans % 0.3 %; Lymphocytes % 16.2 %; MCH 29.4 pg (27.0-33.0); MCHC 30.4 % (32.0-36.0); MCV 97 fL (80-95); MPV 10.4 fL (8.0-11.0); Monocytes % 10.7 %; Neutrophils % 69.7 %; Platelet Count 224 10^3/uL (130-400); RBC 3.06 10^6/uL (3.93-5.22); RDW 14.9 % (11.7-14.6); WBC 5.88 10^3/uL (4.4-10.8)
[2025-01-22 12:50] LABS: ALT 16 U/L (14-59); AST 12 U/L (15-37); Albumin 3.4 g/dL (3.4-5.0); Alkaline Phosphatase 62 U/L (46-116); BUN 29 mg/dL (7-18); Bilirubin, Total 0.4 mg/dL (0.2-1.0); CREATININE 1.3 mg/dL (0.55-1.02); Calcium 8.8 mg/dL (8.5-10.1); Chloride 107 mmol/L (98-107); Estimated GFR 42.09 (mL/min/1.73m2); Glucose 91 mg/dL (74-106); Magnesium 2.2 mg/dL (1.8-2.4); Potassium 4.6 mmol/L (3.5-5.1); Sodium 141 mmol/L (136-145); Total Protein 6.4 g/dL (6.4-8.2)
[2025-01-23 10:59] LABS: FREE T4 0.82 ng/dL (0.76-1.46)
== END 2025-02-02 23:59 | disposition home or self-care (01) ==
LOC: INF 01:59
PROVIDERS: Nurse Practitioner Family; PCP Family Medicine; Visit Provider Internal Medicine Medical Oncology
DX: C34.12 Malignant neoplasm of upper lobe, left bronchus or lung (principal); Z79.899 Other long term (current) drug therapy
CPT/HCPCS: 36591; 80053; 83735; 84439; 84443; 85025

== ENCOUNTER 2025-02-11 02:14 | Outpatient (RCR) | payer MEDICARE, OTHER, SELFPAY ==
[2025-02-11] MEDS: Normal Saline Flush 10 ML SYR IVP (10:39)
[2025-02-11 11:01] LABS: Abs Immature Grans 0.01 10^3/uL (0.0-0.06); Absolute Basophil Count 0.03 10^3/uL (0.0-0.2); Absolute Eosinophil Count 0.12 10^3/uL (0.0-0.7); Absolute Lymphocyte Count 1.12 10^3/uL (1.2-3.4); Absolute Neutrophil Count 2.58 10^3/uL (1.2-6.7); Basophils % 0.7 %; Eosinophils % 2.7 %; HCT 27.8 % (36.0-46.0); HGB 8.5 g/dL (11.2-15.7); Immature Grans % 0.2 %; Lymphocytes % 25.1 %; MCH 29.1 pg (27.0-33.0); MCHC 30.6 % (32.0-36.0); MCV 95 fL (80-95); MPV 10.5 fL (8.0-11.0); Monocytes % 13.5 %; Neutrophils % 57.8 %; Platelet Count 235 10^3/uL (130-400); RBC 2.92 10^6/uL (3.93-5.22); RDW 15.4 % (11.7-14.6); WBC 4.46 10^3/uL (4.4-10.8)
[2025-02-11 11:30] LABS: ALT 16 U/L (14-59); AST 13 U/L (15-37); Albumin 3.3 g/dL (3.4-5.0); Alkaline Phosphatase 63 U/L (46-116); BUN 30 mg/dL (7-18); Bilirubin, Total 0.4 mg/dL (0.2-1.0); CREATININE 1.2 mg/dL (0.55-1.02); Calcium 8.7 mg/dL (8.5-10.1); Chloride 105 mmol/L (98-107); Estimated GFR 46.33 (mL/min/1.73m2); FREE T4 0.81 ng/dL (0.76-1.46); Glucose 67 mg/dL (74-106); Potassium 4.3 mmol/L (3.5-5.1); Sodium 139 mmol/L (136-145); TSH 2.87 uIU/mL (0.36-3.74); Total Protein 6.3 g/dL (6.4-8.2)
== END 2025-03-04 23:59 | disposition home or self-care (01) ==
LOC: INF 02:14
PROVIDERS: Nurse Practitioner Family; PCP Family Medicine; Visit Provider Internal Medicine Medical Oncology
DX: C34.12 Malignant neoplasm of upper lobe, left bronchus or lung (principal); Z79.899 Other long term (current) drug therapy; Z45.2 Encounter for adjustment and management of vascular access device
CPT/HCPCS: 36591; 80053; 83735; 84439; 84443; 85025

== ENCOUNTER 2025-05-13 03:47 | Outpatient (RCR) | payer MEDICARE, OTHER, SELFPAY ==
[2025-05-13] MEDS: Normal Saline Flush 10 ML SYR IVP (12:53)
[2025-05-13 12:57] LABS: Abs Immature Grans 0.01 10^3/uL (0.0-0.06); HCT 34.8 % (36.0-46.0); HGB 11.0 g/dL (11.2-15.7); Immature Grans % 0.2 %; MCH 30.4 pg (27.0-33.0); MCHC 31.6 % (32.0-36.0); MCV 96 fL (80-95); MPV 10.4 fL (8.0-11.0); Platelet Count 212 10^3/uL (130-400); RBC 3.62 10^6/uL (3.93-5.22); RDW 19.9 % (11.7-14.6); RDW-SD 69.8 fL; WBC 5.00 10^3/uL (4.4-10.8)
[2025-05-13 13:33] LABS: ALT 18 U/L (14-59); AST 15 U/L (15-37); Albumin 3.5 g/dL (3.4-5.0); Alkaline Phosphatase 65 U/L (46-116); Anion Gap 8.2 mmol/L (3-11); BUN 22 mg/dL (7-18); Bilirubin, Total 0.5 mg/dL (0.2-1.0); CO2 25.8 mmol/L (21.0-32.0); Calcium 8.7 mg/dL (8.5-10.1); Chloride 104 mmol/L (98-107); Glucose 108 mg/dL (74-106); Magnesium 2.1 mg/dL (1.8-2.4); Potassium 4.2 mmol/L (3.5-5.1); Sodium 138 mmol/L (136-145); TSH 2.72 uIU/mL (0.36-3.74); Total Protein 6.5 g/dL (6.4-8.2)
== END 2025-06-04 23:59 | disposition home or self-care (01) ==
LOC: INF 03:47
PROVIDERS: Nurse Practitioner Family; PCP Family Medicine; Visit Provider Internal Medicine Medical Oncology
DX: C34.12 Malignant neoplasm of upper lobe, left bronchus or lung (principal); Z79.899 Other long term (current) drug therapy; Z45.2 Encounter for adjustment and management of vascular access device
CPT/HCPCS: 36591; 80053; 83735; 84439; 84443; 85025